=== PATIENT | female | born 1980 | race Caucasian/White ===

== ENCOUNTER 2017-01-18 09:17 | Emergency (ER) | payer SELFPAY ==
[~2017-01-18] VITALS: Ht 167.6 cm; Wt 100.2 kg
[2017-01-18] MEDS ORDERED: GABA300C PO (09:54)
[2017-01-18] MEDS ORDERED: DULO60CA6 PO (09:54)
[2017-01-18] MEDS ORDERED: L.AC1CAP6 PO (09:54)
[2017-01-18 11:00] VITALS: BP 0/0
== END 2017-01-18 10:57 | disposition left against medical advice (07) ==
LOC: ER 09:21
DX: R19.7 Diarrhea, unspecified (principal); Z53.21 Procedure and treatment not carried out due to patient leaving prior to being seen by health care provider
CPT/HCPCS: 99282

== ENCOUNTER 2017-06-04 19:49 | Emergency (ER) | payer SELFPAY ==
[~2017-06-04] VITALS: Ht 167.6 cm; Wt 124.7 kg
[~2017-06-04 19:49] MED LIST: DULO60CA6 PO; GABA300C PO; L.AC1CAP6 PO
[2017-06-04] MEDS ORDERED: DULO30CA48 (20:39)
[2017-06-04] MEDS ORDERED: QUET50TA55 (20:39)
[2017-06-04] MEDS ORDERED: RT-ALBUINH (20:39)
[2017-06-04 21:03] LABS: BILIRUBIN,URINE NEGATIVE (NEGATIVE); KETONES,URINE NEGATIVE (NEGATIVE); LEUKOCYTE ESTERASE ,URINE 1+ (NEGATIVE); NITRITE,URINE NEGATIVE (NEGATIVE); PH,URINE 5 (5-9); PROTEIN,URINE NEGATIVE (NEGATIVE); UROBILINOGEN,URINE NORMAL (NORMAL)
[2017-06-04] MEDS ORDERED: KETOROLAC 30 MG/ML VIAL IVP STA (21:03)
[2017-06-04 21:12] LABS: WBC,URINE 0-2 /HPF
[2017-06-04 21:20] LABS: BASOPHILS # (AUTO) 0.1 10^3/uL (0.0-0.1); BASOPHILS % (AUTO) 1 % (0-10); EOSINOPHILS # (AUTO) 0.4 10^3/uL (0.0-0.3); EOSINOPHILS % (AUTO) 6 % (0-10); LYMPHOCYTES # (AUTO) 2.9 X 10^3 (1.0-4.0); LYMPHOCYTES % (AUTO) 49 % (12-44); MEAN CORPUSCULAR HEMOGLOBIN 28 PG (25-34); MEAN CORPUSCULAR HGB CONC 33 G/DL (32-36); MEAN CORPUSCULAR VOLUME 84 FL (80-99); MONOCYTES # (AUTO) 0.7 X 10^3 (0.0-1.0); MONOCYTES % (AUTO) 13 % (0-12); NEUTROPHILS # (AUTO) 1.8 X 10^3 (1.8-7.8); NEUTROPHILS % (AUTO) 31 % (42-75); PLATELET COUNT 269 10^3/uL (130-400); RED CELL DISTRIBUTION WIDTH 14.9 % (10.0-14.5); WHITE BLOOD COUNT 5.9 10^3/uL (4.3-11.0)
--- NOTE | 2017-06-04 21:29 | ED General ---
General Chief Complaint: General Problems/Pain Stated Complaint: BODY ACHES, LOSING FEELING IN HANDS, FATIGUE Nursing Triage Note: AMB TO ED 9 WITH NUMEROUS HYSTERONICS OF SLOW MOVEMENTS AND MOANING, HUNCHED OVER C/O 4 DAYS OF EVERY JOINT IN BODY HURTING. PT WAS JUST FOUND IN WAITING ROOM AFTER HAVING WENT TO HER CAR EARLIER WHEN NAME CALLED AND NOTED WALKING INTO ER WITHOUT DIFF. Nursing Sepsis Screen: No Definite Risk Source of Information: Patient Exam Limitations: No Limitations History of Present Illness Time Seen by Provider: 20:38 Initial Comments Here with report of body aches for the last 4 days. States this is all been worsening since starting Seroquel about a month ago. The last 24 hours she has noted increasing hand swelling and pain in her hands as well as what she describes as patient may be some weakness. She states that she dropped a cup in the middle the night and again this morning. She is not sure what is going on but. She needed to get checked out. She does follow with [facility]. 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 She has been intermittently taking her gabapentin. Also started Prozac within the last month as well. Timing/Duration: 3-4 Days Severity: Moderate Associated Systoms: No Chest Pain, No Fever/Chills, No Nausea/Vomiting, No Shortness of Air, Weakness Allergies and Home Medications Allergies Coded Allergies: No Known Drug Allergies (Unverified , 06/04/17) Home Medications Albuterol Sulfate 6.7 Gm Hfa.aer.ad, (Reported) Duloxetine HCl 60 Mg Capsule., Unknown Dose PO DAILY, (Reported) Duloxetine HCl 30 Mg Capsule., (Reported) Gabapentin 300 Mg Capsule, Unknown Dose PO DAILY, (Reported) L.acidoph & Paracasei,B.lactis 1 Each Capsule, 1 EACH PO NEEDED, (Reported) Quetiapine Fumarate 50 Mg Tablet, (Reported) Constitutional: see HPI, No chills, No fever EENTM: no symptoms reported Respiratory: no symptoms reported Cardiovascular: no symptoms reported Gastrointestinal: No abdominal pain, No nausea, No vomiting Genitourinary: no symptoms reported Musculoskeletal: see HPI, joint pain, muscle pain Skin: no symptoms reported Psychiatric/Neurological: See HPI, Tingling, Weakness Hematologic/Lymphatic: No Symptoms Reported All Other Systems Reviewed Negative Unless Noted: Yes Past Mxqubcl-Pfaszj-Pabdwb Hx Patient Social History Alcohol Use: Past History Recreational Drug Use: Yes (Recovering (5 mo clean) IV meth and ETOH addiction) Smoking Status: Current Everyday Smoker Type Used: Cigarettes 2nd Hand Smoke Exposure: Yes Recent Foreign Travel: No Contact w/Someone Who Travel: No Recent Infectious Disease Expo: No Recent Hopitalizations: No Seasonal Allergies Seasonal Allergies: No Surgeries History of Surgeries: Yes Surgeries: Gallbladder Respiratory History of Respiratory Disorde: Yes Respiratory Disorders: Asthma Cardiovascular History of Cardiac Disorders: No Neurological History of Neurological Disord: No Reproductive System : No (NO MENSES FOR 2 MO) Genitourinary History of Genitourinary Disor: No Gastrointestinal History of Gastrointestinal Di: No Musculoskeletal History of Musculoskeletal Dis: No Endocrine History of Endocrine Disorders: No HEENT History of HEENT Disorders: No Cancer History of Cancer: No Psychosocial History of Psychiatric Problem: Yes (Pyschotic features with each mental health dx given; PMDD) Behavioral Health Disorders: PTSD, Depression Integumentary History of Skin or Integumenta: No Reviewed Nursing Assessment Reviewed/Agree w Nursing PMH: Yes Family Medical History Significant Family History: No Pertinent Family Hx Physical Exam Vital Signs Vital Sign - Last 12Hours 06/04/17 20:29 Temp 97.4 Pulse 98 Resp 22 B/P (MAP) 132/85 Pulse Ox 94 O2 Delivery Room Air Capillary Refill : Less Than 3 Seconds General Appearance: No Apparent Distress, WD/WN HEENT: PERRL/EOMI, Pharynx Normal Neck: Non Tender, Supple Respiratory: Lungs Clear, Normal Breath Sounds Cardiovascular: Regular Rate, Rhythm, No Murmur Gastrointestinal: Non Tender, Soft Back: Normal Inspection, No CVA Tenderness, No Vertebral Tenderness Extremity: Normal Range of Motion, Non Tender Neurologic/Psychiatric: Alert, Oriented x3 Skin: Normal Color, Warm/Dry Progress/Results/Core Measures Results/Orders Lab Results Laboratory Tests Test 06/04/17 20:45 06/04/17 21:14 Range/Units Urine Color YELLOW Urine Clarity CLEAR Urine pH 5 5-9 Urine Specific [place] 1.025 H 1.016-1.022 Urine Protein NEGATIVE NEGATIVE Urine Glucose (UA) NEGATIVE NEGATIVE Urine Ketones NEGATIVE NEGATIVE Urine Nitrite NEGATIVE NEGATIVE Urine Bilirubin NEGATIVE NEGATIVE Urine Urobilinogen NORMAL NORMAL MG/DL Urine Leukocyte Esterase 1+ H NEGATIVE Urine RBC (Auto) 1+ H NEGATIVE Urine RBC RARE /HPF Urine WBC 0-2 /HPF Urine Squamous Epithelial Cells 2-5 /HPF Urine Crystals NONE /LPF Urine Bacteria TRACE /HPF Urine Casts NONE /LPF Urine Mucus SMALL H /LPF Urine Culture Indicated NO Urine Opiates Screen NEGATIVE NEGATIVE Urine Oxycodone Screen NEGATIVE NEGATIVE Urine Methadone Screen NEGATIVE NEGATIVE Urine Propoxyphene Screen NEGATIVE NEGATIVE Urine Barbiturates Screen NEGATIVE NEGATIVE Ur Tricyclic Antidepressants Screen POSITIVE H NEGATIVE Urine Phencyclidine Screen NEGATIVE NEGATIVE Urine Amphetamines Screen NEGATIVE NEGATIVE Urine Methamphetamines Screen POSITIVE H NEGATIVE Urine Benzodiazepines Screen POSITIVE H NEGATIVE Urine Cocaine Screen NEGATIVE NEGATIVE Urine Cannabinoids Screen NEGATIVE NEGATIVE White Blood Count 5.9 4.3-11.0 10^3/uL Red Blood Count 4.30 L 4.35-5.85 10^6/uL Hemoglobin 12.0 11.5-16.0 G/DL Hematocrit 36 35-52 % Mean Corpuscular Volume 84 80-99 FL Mean Corpuscular Hemoglobin 28 25-34 PG Mean Corpuscular Hemoglobin Concent 33 32-36 G/DL Red Cell Distribution Width 14.9 H 10.0-14.5 % Platelet Count 269 130-400 10^3/uL Mean Platelet Volume 10.0 7.4-10.4 FL Neutrophils (%) (Auto) 31 L 42-75 % Lymphocytes (%) (Auto) 49 H 12-44 % Monocytes (%) (Auto) 13 H 0-12 % Eosinophils (%) (Auto) 6 0-10 % Basophils (%) (Auto) 1 0-10 % Neutrophils # (Auto) 1.8 1.8-7.8 X 10^3 Lymphocytes # (Auto) 2.9 1.0-4.0 X 10^3 Monocytes # (Auto) 0.7 0.0-1.0 X 10^3 Eosinophils # (Auto) 0.4 H 0.0-0.3 10^3/uL Basophils # (Auto) 0.1 0.0-0.1 10^3/uL Erythrocyte Sedimentation Rate 16 0-20 MM/HR Sodium Level 139 135-145 MMOL/L Potassium Level 4.0 3.6-5.0 MMOL/L Chloride Level 104 98-107 MMOL/L Carbon Dioxide Level 28 21-32 MMOL/L Anion Gap 7 5-14 MMOL/L Blood Urea Nitrogen 11 7-18 MG/DL Creatinine 0.79 0.60-1.30 MG/DL Estimat Glomerular Filtration Rate > 60 BUN/Creatinine Ratio 14 Glucose Level 102 70-105 MG/DL Calcium Level 8.9 8.5-10.1 MG/DL Magnesium Level 1.7 L 1.8-2.4 MG/DL Total Bilirubin 0.2 0.1-1.0 MG/DL Aspartate Amino Transf (AST/SGOT) 28 5-34 U/L Alanine Aminotransferase (ALT/SGPT) 27 0-55 U/L Alkaline Phosphatase 70 40-136 U/L Total Creatine Kinase 129 29-168 U/L C-Reactive Protein High Sensitivity 0.11 0.00-0.50 MG/DL Total Protein 7.1 6.4-8.2 GM/DL Albumin 3.7 3.2-4.5 GM/DL Thyroid Stimulating Hormone (TSH) 1.61 0.35-4.94 UIU/ML My Orders Orders - YUN TIRADO MD Cbc With Automated Diff (06/04/17 20:42) Comprehensive Metabolic Panel (06/04/17 20:42) Hs C Reactive Protein (06/04/17 20:42) Drug Screen Stat (Urine) (06/04/17 20:42) Magnesium (06/04/17 20:42) Thyroid Stimulating Hormone (06/04/17 20:42) Ua Culture If Indicated (06/04/17 20:42) Saline Lock/Iv-Start (06/04/17 20:42) Ketorolac Injection (Toradol Injection) (06/04/17 21:03) Creatine Kinase (06/04/17 21:03) Erythrocyte Sedimentation Rate (06/04/17 21:03) Ns Iv 1000 Ml (Sodium Chloride 0.9%) (06/04/17 21:43) Vital Signs/I&O Vital Sign - Last 12Hours 06/04/17 20:29 Temp 97.4 Pulse 98 Resp 22 B/P (MAP) 132/85 Pulse Ox 94 O2 Delivery Room Air Blood Pressure Mean: 101 Point of Care Testing Urine -Bedside: Negative Progress Note : Progress Note Seen and evaluated. IV, labs and UA ordered. Monitor patient. 2135: Normal saline 1 L bolus. Monitor patient. Drug screen is positive for methamphetamine but this is often the case with the patient is on Seroquel. Amphetamines are negative. Unsure why benzodiazepines are positive. I did ask her about this and she states that her mother gave her one of her Xanax was last night because she wasn't feeling well. She adamantly denies methamphetamine and at this point I believe her. Monitor patient. 2245: Results reviewed. Patient does state that she did increase her Seroquel to 50 mg every afternoon and her symptoms worsen. I do believe this is related to her Seroquel. She needs to talk with the clinic about adjustments. She will call in the morning. Copy of chart to clinic. Discharged home with return precautions. Patient verbalize understanding instructions and agreement with plan. Departure Impression Impression: Primary Impression: Medication adverse effect Qualified Codes: T88.7XXA - Unspecified adverse effect of drug or medicament, initial encounter Additional Impressions: Dysarthria Joint pain Qualified Codes: M25.50 - Pain in unspecified joint Disposition: 01 HOME, SELF-CARE Condition: Stable Departure-Patient Inst. Decision time for Depature: 22:49 Referrals: [facility] (PCP/Family) Primary Care Physician Patient Instructions: Adverse Drug Reactions, Adult (DC), Joint Pain Add. Discharge Instructions: All discharge instructions reviewed with patient and/or family. Voiced understanding. Call your Dr. in the morning for recheck and further evaluation. You should decrease the Seroquel to 25 mg at a minimum. Your physician may have used office altogether since she had only been on a short-term. It is important that he follow-up in the clinic within the next one to 2 days for recheck and further evaluation. Return for worse pain, fever, vomiting, weakness, breathing problems or other concerns as needed. Copy Copies To 1: STARR MUNSON TIMOTHY D MD Jun 04, 2017 21:29
[2017-06-04 21:38] LABS: ERYTHROCYTE SEDIMENTATION RATE 16 MM/HR (0-20)
[2017-06-04 21:39] LABS: ALANINE AMINOTRANSFERASE 27 U/L (0-55); ALBUMIN 3.7 GM/DL (3.2-4.5); ANION GAP 7 MMOL/L (5-14); ASPARTATE AMINO TRANSFERASE 28 U/L (5-34); BILIRUBIN,TOTAL 0.2 MG/DL (0.1-1.0); BLOOD UREA NITROGEN 11 MG/DL (7-18); BUN/CREATININE RATIO 14; CALCIUM 8.9 MG/DL (8.5-10.1); CARBON DIOXIDE 28 MMOL/L (21-32); CHLORIDE 104 MMOL/L (98-107); CREATINE KINASE 129 U/L (29-168); CREATININE SERUM 0.79 MG/DL (0.60-1.30); GFR ESTIMATED > 60; GLUCOSE 102 MG/DL (70-105); MAGNESIUM 1.7 MG/DL (1.8-2.4); SODIUM 139 MMOL/L (135-145); TOTAL PROTEIN 7.1 GM/DL (6.4-8.2); hs C REACTIVE PROTEIN 0.11 MG/DL (0.00-0.50)
[2017-06-04] MEDS ORDERED: NS IV 1000 ML 1,000 ML IV ONE (21:43)
[2017-06-04 21:58] LABS: THYROID STIMULATING HORMONE 1.61 UIU/ML (0.35-4.94)
[2017-06-04 23:00] VITALS: BP 128/64
== END 2017-06-04 23:00 | disposition home or self-care (01) ==
LOC: EDUNIT# 19:49 → ER 19:50
DX: R47.1 Dysarthria and anarthria (principal); M25.50 Pain in unspecified joint; T88.7XXA Unspecified adverse effect of drug or medicament, initial encounter; J45.909 Unspecified asthma, uncomplicated; F43.10 Post-traumatic stress disorder, unspecified; F32.9 Major depressive disorder, single episode, unspecified; F17.210 Nicotine dependence, cigarettes, uncomplicated
CPT/HCPCS: 36415; 80053; 80306; 81000; 82550; 83735; 84443; 84703; 85025; 85652; 86141

== ENCOUNTER 2018-02-04 14:41 | Emergency (ER) | payer SELFPAY ==
[~2018-02-04] VITALS: Ht 167.6 cm; Wt 122.6 kg
[~2018-02-04 14:41] MED LIST changes: +CEFD300C3 PO; +DULO30CA48 PO; +FLUO40CA PO; +LEVO750T9 PO; +PRAZ1CAP PO; +QUET50TA55 PO; +RT-ALBUINH; +RT-ALBUINH INH
[2018-02-04] MEDS ORDERED: RT-ALBUTEROL/IPRATROPIUM 3 ML (DUONEB) VIAL INH ONE (15:00)
[2018-02-04] MEDS ORDERED: FLUO40CA (15:12)
[2018-02-04] MEDS ORDERED: BUPR1FIL3 (15:12)
--- NOTE | 2018-02-04 15:30 | ED Respiratory ---
General Chief Complaint: Respiratory Problems Stated Complaint: SOB Nursing Triage Note: SOA REPORTED TODAY AFTER GETTING TIGHTNESS IN CHEST YESTERDAY. PT CALLED INTO WORK YESTERDAY FOR COUGH WITH [employer] OF [employer]. Source: patient Exam Limitations: no limitations History of Present Illness Date Seen by Provider: Feb 04, 2018 Time Seen by Provider: 14:40 Initial Comments Here with reports of shortness of air today and using her inhaler multiple times. Has had cough for a few days with question of fever. Reports productive cough. Does have history of asthma. Denies nausea, vomiting, diarrhea. Has had asthma since she was 3 and this feels like an exacerbation. Timing/Duration: getting worse, other (2 days) Severity: moderate Prior Episodes/Possible Cause: occasional episodes Modifying Factors: Worse With Activity; Improves With Albuterol Inhaler Associated Symptoms: cough, fever/chills, nasal congestion, nasal drainage, shortness of breath, wheezing Allergies and Home Medications Allergies Coded Allergies: No Known Drug Allergies (Unverified , 06/04/17) Patient Home Medication List Home Medication List Reviewed: Yes Review of Systems Constitutional: see HPI, chills, fever EENTM: see HPI Respiratory: cough, short of breath, wheezing Cardiovascular: no symptoms reported Gastrointestinal: no symptoms reported Musculoskeletal: no symptoms reported Skin: no symptoms reported All Other Systems Reviewed Negative Unless Noted: Yes Past Umxyefn-Uubgbd-Islyfw Hx Past Med/Social Hx: Reviewed Nursing Past Med/Soc Hx Patient Social History Alcohol Use: Denies Use Recreational Drug Use: Yes (REPORTS "POT" A COUPLE DAYS AGO) Drug of Choice: METHAMPHETAMINE Smoking Status: Current Everyday Smoker Type Used: Cigarettes 2nd Hand Smoke Exposure: Yes Recent Foreign Travel: No Contact w/Someone Who Travel: No Recent Infectious Disease Expo: No Recent Hopitalizations: No Immunizations Up To Date Tetanus Booster (TDap): Unknown Seasonal Allergies Seasonal Allergies: No Past Medical History Surgeries: Yes Gallbladder, Tubal Ligation Respiratory: Yes Asthma Cardiac: No Neurological: No : No Last Menstrual Period: Feb 02, 2018 [employer] History: Tubal Ligation Genitourinary: No Gastrointestinal: No Musculoskeletal: No Endocrine: No HEENT: No Cancer: No Psychosocial: Yes PTSD, Depression Integumentary: No Family Medical History Reviewed Nursing Family Hx Patient reports no known family medical history. No Pertinent Family Hx Physical Exam Vital Signs Vital Signs - First Documented 02/04/18 02/04/18 14:42 15:52 Temp 97.4 Pulse 138 Resp 24 B/P (MAP) 144/96 (112) Pulse Ox 96 O2 Delivery Room Air O2 Flow Rate 2.00 Capillary Refill : Less Than 3 Seconds General Appearance: WD/WN, no apparent distress HEENT: PERRL/EOMI, pharyngeal erythema, other (moderate bilateral nasal congestion with erythema) Neck: full range of motion, supple, normal inspection Respiratory: decreased breath sounds, accessory muscle use, wheezing Cardiovascular: no murmur, tachycardia Gastrointestinal: non tender, soft Extremities: non-tender, normal inspection Neurologic/Psychiatric: alert, oriented x 3 Skin: normal color, warm/dry Procedures/Interventions Date of ETT Placement: Jun 26, 2017 Time of ETT Placement: 1748 Progress/Results/Core Measures Suspected Sepsis Recent Fever Within 48 Hours: No Infection Criteria Present: Suspected New Infection New/Unexplained Altered Menta: No Sepsis Screen: Possible Sepsis Risk SIRS Temperature:97.4 Pulse: 138 Respiratory Rate: 24 Blood Pressure 144 /96 Mean: 112 Results/Orders My Orders Orders - YUN TIRADO MD Albuterol/Ipra Inhalation Soln (Duoneb I (02/04/18 15:00) Svn Small Volume Nebulizer (02/04/18 14:46) Rt Request For Service (02/04/18 14:46) Prednisone Tablet (Deltasone Tablet) (02/04/18 15:45) Albuterol Pre-Mix Nebs (Rt) (Proventil (02/04/18 16:29) Svn Small Volume Nebulizer (02/04/18 16:29) Rx-Albuterol Inhaler (Rx-Proair) (02/04/18 16:30) Medications Given in ED Current Medications Medications Dose Ordered Sig/Margarita Route Start Time Stop Time Status Last Admin Dose Admin Albuterol/ Ipratropium 3 ml ONCE ONCE INH 02/04/18 15:00 02/04/18 15:01 DC 02/04/18 15:06 3 ML Prednisone 60 mg ONCE ONCE PO 02/04/18 15:45 02/04/18 15:46 DC 02/04/18 15:58 60 MG Vital Signs/I&O 02/04/18 02/04/18 02/04/18 14:42 15:52 16:42 Temp 97.4 99.6 Pulse 138 105 Resp 24 24 B/P (MAP) 144/96 (112) 115/64 (81) Pulse Ox 96 96 98 O2 Delivery Room Air Nasal Cannula Nasal Cannula O2 Flow Rate 2.00 2.00 Capillary Refill : Less Than 3 Seconds Blood Pressure Mean: 112 Progress Note : Progress Note Seen and evaluated. Patient arrives shaky from using albuterol at home but is very wheezy. DuoNeb ordered. We will give prednisone 60 mg by mouth. Due to cough and congestion and sputum production, we will get chest x-ray. Monitor patient. 1650: Repeat albuterol neb 1. This did improve her symptoms. She is feeling a little better. Albuterol MDI given. Discharged home with return precautions. Patient verbalize understanding instructions and agreement with plan. I did spend time with her discussing cessation of smoking. She states that she is thinking about that. Diagnostic Imaging Diagonstic Imaging: Xray Plain Films/CT/US/NM/MRI: chest Comments VIA [facility]. [place], [place] NAME: DAKSHA SHARP [facility] REC#: [id number] PT STATUS: REG ER : 1980 PHYSICIAN: DARBY MOSS ADMIT DATE: 02/04/18/ER Draft Date of Exam:02/04/18 CHEST PA/LAT (2 VIEW) INDICATION: Shortness of breath. EXAMINATION: PA and lateral chest at 4:05 p.m. FINDINGS: The heart size is within normal limits and stable when compared to 07/01/2017. The central pulmonary vascularity does not appear nearly as prominent as noted on the prior exam. At this time there is no evidence for failure, pneumonia or for a pleural effusion. The mediastinum is not widened. The osseous structures are intact. IMPRESSION: There is no evidence for an acute cardiopulmonary abnormality. Dictated on workstation # [id number] Dict: 02/04/18 1557 Trans: 02/04/18 1605 [facility] [id number] Interpreted by: BETH LOPEZ MD Electronically signed by: Departure Impression Primary Impression: Asthma attack Qualified Codes: J45.21 - Mild intermittent asthma with (acute) exacerbation Disposition: HOME, SELF-CARE Condition: Improved Departure-Patient Inst. Decision time for Depature: 16:56 Referrals: [facility] (PCP/Family) Primary Care Physician Patient Instructions: Asthma, Adult (DC) Add. Discharge Instructions: All discharge instructions reviewed with patient and/or family. Voiced understanding. Take medications as directed. Follow-up with your Dr. or the walk-in clinic at [facility] tomorrow for recheck and further evaluation. Return for worsening, fever, vomiting, weakness, breathing problems or other concerns as needed. You may use your albuterol inhaler 2 puffs every 4 hours as needed for wheezing. Scripts Prednisone (Prednisone) 20 Mg Tab 40 MG PO DAILY, #10 TAB 0 Refills Prov: YUN TIRADO MD 02/04/18 Copy Copies To 1: JACINTA LAL TIMOTHY D MD Feb 04, 2018 15:30
[2018-02-04] MEDS ORDERED: predniSONE 20 MG TAB PO ONE (15:45)
[2018-02-04 15:52] VITALS: BP 115/64
--- NOTE | 2018-02-04 16:05 | Diagnostic Imaging Report ---
INDICATION: Shortness of breath. EXAMINATION: PA and lateral chest at 4:05 p.m. FINDINGS: The heart size is within normal limits and stable when compared to 07/01/2017. The central pulmonary vascularity does not appear nearly as prominent as noted on the prior exam. At this time there is no evidence for failure, pneumonia or for a pleural effusion. The mediastinum is not widened. The osseous structures are intact. IMPRESSION: There is no evidence for an acute cardiopulmonary abnormality. Dictated by: Dictated on workstation # [id number]
[2018-02-04] MEDS ORDERED: RT-ALBUTEROL SULF 2.5 MG/3 ML PRE-MIX VIAL INH STA (16:29)
[2018-02-04] MEDS ORDERED: RX-ALBUTEROL INHALER (PROAIR) 8 GM IH PRN (16:30)
[2018-02-04] MEDS ORDERED: PRD20T PO (16:57)
[2018-02-04 17:02] VITALS: BP 141/94
== END 2018-02-04 17:02 | disposition home or self-care (01) ==
LOC: EDUNIT# 14:41 → ER 14:42
DX: J45.901 Unspecified asthma with (acute) exacerbation (principal); F32.9 Major depressive disorder, single episode, unspecified; F43.10 Post-traumatic stress disorder, unspecified; F15.90 Other stimulant use, unspecified, uncomplicated; F17.210 Nicotine dependence, cigarettes, uncomplicated; Z98.51 Tubal ligation status
CPT/HCPCS: 71046; 94640

== ENCOUNTER 2018-10-31 12:04 | Inpatient (IN) | payer SELFPAY ==
[~2018-10-31] VITALS: Ht 167.6 cm; Wt 118.6 kg
[~2018-10-31 12:04] MED LIST changes: +BUPR1FIL3; +FLUO40CA; +PRD20T PO
[2018-10-31] MEDS ORDERED: RT-ALBUTEROL SULF 2.5 MG/3 ML PRE-MIX VIAL INH STA ×2 (12:12→12:40)
[2018-10-31 12:21] LABS: BASOPHILS % (AUTO) 0 % (0-10); EOSINOPHILS # (AUTO) 0.1 10^3/uL (0.0-0.3); EOSINOPHILS % (AUTO) 1 % (0-10); HEMATOCRIT 40 % (35-52); HEMOGLOBIN 13.1 G/DL (11.5-16.0); LYMPHOCYTES # (AUTO) 2.8 X 10^3 (1.0-4.0); LYMPHOCYTES % (AUTO) 29 % (12-44); MEAN CORPUSCULAR HEMOGLOBIN 28 PG (25-34); MEAN CORPUSCULAR HGB CONC 33 G/DL (32-36); MEAN CORPUSCULAR VOLUME 84 FL (80-99); MEAN PLATELET VOLUME 10.1 FL (7.4-10.4); MONOCYTES # (AUTO) 0.8 X 10^3 (0.0-1.0); MONOCYTES % (AUTO) 8 % (0-12); NEUTROPHILS % (AUTO) 62 % (42-75); PLATELET COUNT 335 10^3/uL (130-400); WHITE BLOOD COUNT 9.7 10^3/uL (4.3-11.0)
--- NOTE | 2018-10-31 12:33 | NUR ---
SEE LIST FOR CURRENT MEDS LIST
[2018-10-31] MEDS ORDERED: RT-IPRATROPIUM (ATROVENT) 0.5MG/2.5ML AMP IH ONE ×2 (12:40→12:45)
[2018-10-31 12:45] LABS: ALANINE AMINOTRANSFERASE 46 U/L (0-55); ALBUMIN 4.2 GM/DL (3.2-4.5); ALKALINE PHOSPHATASE 83 U/L (40-136); BILIRUBIN,TOTAL 0.3 MG/DL (0.1-1.0); BUN/CREATININE RATIO 16; CALCIUM 9.4 MG/DL (8.5-10.1); CARBON DIOXIDE 23 MMOL/L (21-32); CHLORIDE 102 MMOL/L (98-107); CREATININE SERUM 0.93 MG/DL (0.60-1.30); GFR ESTIMATED > 60; GLUCOSE 89 MG/DL (70-105); SODIUM 134 MMOL/L (135-145); TOTAL PROTEIN 7.5 GM/DL (6.4-8.2)
--- NOTE | 2018-10-31 13:16 | ED Respiratory ---
General Chief Complaint: Respiratory Problems Stated Complaint: SOA Nursing Triage Note: PT ARRIVED PER EMS PT IS HAVING AN ASTHMA ATTACK, PT ARRIVED FROM [facility], PT HAS AUDITORY WHEEZING, RATES 93%ON ROOM AIR, PT DENIES FEVER, 8MG DECADRON GIVEN IM AT CLINIC. 1 DUONEB BY [facility] AND 1 ALBULTEROL TX BY EMS. Source: patient Exam Limitations: no limitations History of Present Illness Date Seen by Provider: Oct 31, 2018 Time Seen by Provider: 12:14 Initial Comments Here with report of asthma attack. She went to the clinic and they did give her a DuoNeb there as well as 8 mg of Decadron IM. O2 saturations was reported to be low and in the 80s. She was placed on oxygen at the clinic. This did help. EMS was called and they did give albuterol neb in route helped a little bit. Patient denies current fever or vomiting. Does have lifelong asthma. She has had breathing problems over the last week and has used up all of her inhaler and is not getting better. This all started with a cold last week. She did have chest x-ray today at the clinic which is reportedly read as just atelectasis.. The CD was sent with the patient. Timing/Duration: week, getting worse Severity: moderate Prior Episodes/Possible Cause: occasional episodes Modifying Factors: Improves With Albuterol Nebulizer, Improves With Oxygen, Improves With Rest Associated Symptoms: No chest pain/soreness; cough; No dizziness, No fever/ chills; shortness of breath, wheezing Allergies and Home Medications Allergies Coded Allergies: No Known Drug Allergies (Unverified , 06/04/17) Home Medications Prednisone 20 Mg Tab, 40 MG PO DAILY Prescribed by: YUN TIRADO on 02/04/18 1765 Patient Home Medication List Home Medication List Reviewed: Yes Review of Systems Review of Systems Constitutional: see HPI; No chills, No fever EENTM: no symptoms reported Respiratory: cough, dyspnea on exertion, short of breath, wheezing Cardiovascular: no symptoms reported Gastrointestinal: no symptoms reported All Other Systems Reviewed Negative Unless Noted: Yes Past Aclnijo-Ljprst-Omteua Hx Past Med/Social Hx: Reviewed Nursing Past Med/Soc Hx Patient Social History Alcohol Use: Denies Use Recreational Drug Use: No Drug of Choice: METHAMPHETAMINE Smoking Status: Current Everyday Smoker Type Used: Cigarettes 2nd Hand Smoke Exposure: Yes Recent Foreign Travel: No Contact w/Someone Who Travel: No Recent Infectious Disease Expo: No Recent Hopitalizations: No Immunizations Up To Date Tetanus Booster (TDap): Unknown Seasonal Allergies Seasonal Allergies: No Past Medical History Surgeries: Yes Gallbladder, Tubal Ligation Respiratory: Yes Asthma Cardiac: No Neurological: No INCOME TAX CONSULTANT History: Tubal Ligation Genitourinary: No Gastrointestinal: No Musculoskeletal: No Endocrine: No HEENT: No Cancer: No Psychosocial: Yes PTSD, Depression Integumentary: No Family Medical History Reviewed Nursing Family Hx Patient reports no known family medical history. No Pertinent Family Hx Physical Exam Vital Signs - First Documented 10/31/18 12:10 Temp 97.3 Pulse 94 Resp 18 B/P (MAP) 149/85 (106) Pulse Ox 93 O2 Delivery Room Air Capillary Refill : Less Than 3 Seconds Height: 5'6.00" Weight: 260lbs. 6.0oz. 117.444755vv; 41.6 BMI Method:Stated General Appearance: WD/WN, mild distress HEENT: PERRL/EOMI, pharynx normal Neck: full range of motion, supple Respiratory: respiratory distress, accessory muscle use, wheezing, expiration Cardiovascular: regular rate, rhythm, no murmur Gastrointestinal: non tender, soft Extremities: non-tender, normal inspection Neurologic/Psychiatric: alert, oriented x 3 Skin: normal color, warm/dry Procedures/Interventions Date of ETT Placement: Jun 26, 2017 Time of ETT Placement: 1749 Progress/Results/Core Measures Suspected Sepsis Recent Fever Within 48 Hours: No Infection Criteria Present: None New/Unexplained Altered Menta: No Sepsis Screen: No Definite Risk SIRS Temperature:97.3 Pulse: 94 Respiratory Rate: 18 Laboratory Tests 10/31/18 12:15: White Blood Count 9.7 Blood Pressure 149 /85 Mean: 106 Laboratory Tests 10/31/18 12:15: Creatinine 0.93, Platelet Count 335, Total Bilirubin 0.3 Results/Orders Lab Results Laboratory Tests Test 10/31/18 12:15 Range/Units White Blood Count 9.7 4.3-11.0 10^3/uL Red Blood Count 4.71 4.35-5.85 10^6/uL Hemoglobin 13.1 11.5-16.0 G/DL Hematocrit 40 35-52 % Mean Corpuscular Volume 84 80-99 FL Mean Corpuscular Hemoglobin 28 25-34 PG Mean Corpuscular Hemoglobin Concent 33 32-36 G/DL Red Cell Distribution Width 15.0 H 10.0-14.5 % Platelet Count 335 130-400 10^3/uL Mean Platelet Volume 10.1 7.4-10.4 FL Neutrophils (%) (Auto) 62 42-75 % Lymphocytes (%) (Auto) 29 12-44 % Monocytes (%) (Auto) 8 0-12 % Eosinophils (%) (Auto) 1 0-10 % Basophils (%) (Auto) 0 0-10 % Neutrophils # (Auto) 6.0 1.8-7.8 X 10^3 Lymphocytes # (Auto) 2.8 1.0-4.0 X 10^3 Monocytes # (Auto) 0.8 0.0-1.0 X 10^3 Eosinophils # (Auto) 0.1 0.0-0.3 10^3/uL Basophils # (Auto) 0.0 0.0-0.1 10^3/uL Sodium Level 134 L 135-145 MMOL/L Potassium Level 4.0 3.6-5.0 MMOL/L Chloride Level 102 98-107 MMOL/L Carbon Dioxide Level 23 21-32 MMOL/L Anion Gap 9 5-14 MMOL/L Blood Urea Nitrogen 15 7-18 MG/DL Creatinine 0.93 0.60-1.30 MG/DL Estimat Glomerular Filtration Rate > 60 BUN/Creatinine Ratio 16 Glucose Level 89 70-105 MG/DL Calcium Level 9.4 8.5-10.1 MG/DL Corrected Calcium 9.2 8.5-10.1 MG/DL Total Bilirubin 0.3 0.1-1.0 MG/DL Aspartate Amino Transf (AST/SGOT) 23 5-34 U/L Alanine Aminotransferase (ALT/SGPT) 46 0-55 U/L Alkaline Phosphatase 83 40-136 U/L C-Reactive Protein High Sensitivity 0.05 0.00-0.50 MG/DL Total Protein 7.5 6.4-8.2 GM/DL Albumin 4.2 3.2-4.5 GM/DL My Orders Orders - YUN TIRADO MD Cbc With Automated Diff (10/31/18 12:12) Comprehensive Metabolic Panel (10/31/18 12:12) Hs C Reactive Protein (10/31/18 12:12) O2 (10/31/18 12:12) Monitor-Rhythm Ecg Trace Only (10/31/18 12:12) Albuterol Pre-Mix Nebs (Rt) (Proventil (10/31/18 12:12) Svn Small Volume Nebulizer (10/31/18 12:12) Albuterol Pre-Mix Nebs (Rt) (Proventil (10/31/18 12:40) Ipratropium 0.02% Neb Solution (Atrovent (10/31/18 12:45) Svn Small Volume Nebulizer (10/31/18 12:40) Svn Small Volume Nebulizer (10/31/18 12:40) Ipratropium 0.02% Neb Solution (Atrovent (10/31/18 12:40) Medications Given in ED Current Medications Medications Dose Ordered Sig/Margarita Route Start Time Stop Time Status Last Admin Dose Admin Ipratropium [place] 0.5 mg ONCE ONCE IH 10/31/18 12:45 10/31/18 12:46 DC 10/31/18 12:44 0.5 MG Vital Signs/I&O 10/31/18 10/31/18 10/31/18 12:10 12:32 12:45 Temp 97.3 Pulse 94 Resp 18 B/P (MAP) 149/85 (106) Pulse Ox 93 95 93 O2 Delivery Room Air Room Air Room Air Capillary Refill : Less Than 3 Seconds Blood Pressure Mean: 106 Progress Note : Progress Note Seen and evaluated. Albuterol neb 2 ordered. This was complete and did not change her status much. She is still not at baseline. We have drawn labs and symptoms for evaluation. I did review the CT of the chest x-ray sent for the patient for today and what appears to be a previous visit. I do agree with the atelectasis concerns to the right base. Labs do not show any significant findings for elevated white count or elevated CRP so I do not believe she has pneumonia. This seems to be asthma exacerbation. Hour-long treatment initiated. 1344: I did discuss the case with Dr. Bradshaw and she accepts patient for admission for status asthma. We will continue the breathing treatments and then also start Solu-Medrol 60 mg IV every 6. 1435: Patient is on O2 at 2 L. She does have drop and O2 1 sleeping to 85% on room air earlier. Patient agrees with admission. Departure Impression Primary Impression: Status asthmaticus Qualified Codes: J45.42 - Moderate persistent asthma with status asthmaticus Disposition: ADMITTED INPATIENT Condition: Stable Admissions Decision to Admit Reason: Admit from ER (General) Decision to Admit/Date: Oct 31, 2018 Time/Decision to Admit Time: 13:44 Departure-Patient Inst. Referrals: [facility] (PCP/Family) Primary Care Physician YUN TIRADO MD Oct 31, 2018 13:16
--- NOTE | 2018-10-31 14:17 | NUR ---
O2 PUT ON PT, SAT AT 85% WHEN SLEEPING 2L N/C APPLIED
[2018-10-31 15:48] VITALS: BP 134/85
[2018-10-31 16:43] VITALS: BP 134/83
[2018-10-31 16:45] VITALS: BP 149/85
[2018-10-31] MEDS ORDERED: CATHETER FLUSH 10 ML SYR IV PRN (16:45)
[2018-10-31] MEDS: NS IV 1000 ML 1,000 ML IV SCH (16:53)
[2018-10-31] MEDS ORDERED: RT-ALBUTEROL/IPRATROPIUM 3 ML (DUONEB) VIAL INH PRN (17:00)
[2018-10-31] MEDS ORDERED: FLU QUADRIvalent (5+ YOA) 2018-2019 (AFLURIA) 0.5 ML IM ONE (17:00)
[2018-10-31] MEDS: IBUPROFEN 600 MG (MOTRIN) TAB PO PRN ×2 (17:31→23:17)
[2018-10-31] MEDS: methylPREDNISolone 40 MG/ML (Solu-MEDROL) VIAL IV SCH ×2 (17:38→23:16)
[2018-10-31] MEDS: RT-ALBUTEROL/IPRATROPIUM 3 ML (DUONEB) VIAL INH SCH ×2 (18:49→23:43)
[2018-10-31] MEDS: NICOTINE 21 MG (NICODERM) PATCH TD SCH (18:50)
[2018-10-31 19:45] VITALS: BP 132/65
[2018-11-01] VITALS: BP 140/60
[2018-11-01] MEDS: ONDANSETRON 4 MG/2 ML (SDV) Z0FRAN IV PRN ×3 (00:04→16:49)
[2018-11-01] MEDS: NS IV 1000 ML 1,000 ML IV SCH ×3 (02:12→19:20)
[2018-11-01] MEDS: RT-ALBUTEROL/IPRATROPIUM 3 ML (DUONEB) VIAL INH SCH ×5 (02:21→22:35)
[2018-11-01 04:47] VITALS: BP 129/74
[2018-11-01] MEDS: methylPREDNISolone 40 MG/ML (Solu-MEDROL) VIAL IV SCH ×3 (05:34→17:53)
[2018-11-01] MEDS: IBUPROFEN 600 MG (MOTRIN) TAB PO PRN ×2 (05:34→20:39)
[2018-11-01 07:00] LABS: BASOPHILS % (AUTO) 0 % (0-10); EOSINOPHILS % (AUTO) 0 % (0-10); HEMATOCRIT 39 % (35-52); HEMOGLOBIN 13.1 G/DL (11.5-16.0); LYMPHOCYTES # (AUTO) 1.6 X 10^3 (1.0-4.0); LYMPHOCYTES % (AUTO) 7 % (12-44); MEAN CORPUSCULAR HEMOGLOBIN 28 PG (25-34); MEAN CORPUSCULAR HGB CONC 34 G/DL (32-36); MEAN CORPUSCULAR VOLUME 84 FL (80-99); MEAN PLATELET VOLUME 10.3 FL (7.4-10.4); MONOCYTES # (AUTO) 0.8 X 10^3 (0.0-1.0); MONOCYTES % (AUTO) 3 % (0-12); NEUTROPHILS # (AUTO) 20.5 X 10^3 (1.8-7.8); NEUTROPHILS % (AUTO) 90 % (42-75); PLATELET COUNT 391 10^3/uL (130-400); RED CELL DISTRIBUTION WIDTH 15.2 % (10.0-14.5); WHITE BLOOD COUNT 22.9 10^3/uL (4.3-11.0)
[2018-11-01 07:27] LABS: ALANINE AMINOTRANSFERASE 39 U/L (0-55); ALBUMIN 4.2 GM/DL (3.2-4.5); ALKALINE PHOSPHATASE 90 U/L (40-136); BILIRUBIN,TOTAL 0.3 MG/DL (0.1-1.0); BUN/CREATININE RATIO 17; CARBON DIOXIDE 21 MMOL/L (21-32); CHLORIDE 104 MMOL/L (98-107); CREATININE SERUM 0.83 MG/DL (0.60-1.30); GFR ESTIMATED > 60; GLUCOSE 186 MG/DL (70-105); POTASSIUM 4.9 MMOL/L (3.6-5.0); SODIUM 135 MMOL/L (135-145); TOTAL PROTEIN 7.5 GM/DL (6.4-8.2)
[2018-11-01 07:45] LABS: BAND NEUTROPHILS 2 %; BASOPHILS % (MANUAL) 0 %; EOSINOPHILS % (MANUAL) 0 %; LYMPHOCYTES % (MANUAL) 8 %; MONOCYTES % (MANUAL) 4 %; NEUTROPHILS % (MANUAL) 86 %
[2018-11-01 07:46] LABS: ANISOCYTOSIS SLIGHT
[2018-11-01 08:00] VITALS: BP 111/72
[2018-11-01] MEDS ORDERED: BUPR1FIL3 SL (08:27)
[2018-11-01] MEDS: NICOTINE 21 MG (NICODERM) PATCH TD SCH (09:01)
[2018-11-01] MEDS ORDERED: ALBU6.7H8 INH (09:41)
[2018-11-01] MEDS ORDERED: FLUO20CA42 PO (09:41)
[2018-11-01] MEDS ORDERED: TRAZ-190 PO (09:41)
[2018-11-01] MEDS: BUPRENORPHINE HCL SL SCH (09:50)
[2018-11-01] MEDS: [UNRECOGNIZED DRUG - OTHER] SL SCH (09:50)
[2018-11-01] MEDS: NICOTINE PATCH REMOVAL TP SCH (09:50)
[2018-11-01] MEDS: NALOXONE HCL SL SCH (09:50)
[2018-11-01] MEDS ORDERED: BUPR1TAB48 SL (10:16)
--- NOTE | 2018-11-01 10:16 | NUR ---
CALLED [facility] FOR A LIST OF RECENTLY FILLED MEDICATIONS AND WENT OVER THAT LIST WITH THE PATIENT. [facility] FILLED: 11-01-18 SUBOXONE 8-2 SL TABLETS 2 DAILY PROVENTIL 2 PUFFS Q6H PRN TRAZODONE 100MG HS FLUOXETINE 20MG 3 DAILY(PATIENT STATES SHE JUST RESTARTED THIS SO IS ONLY TAKING 1 DAILY AND WILL TITRATE UP)
--- NOTE | 2018-11-01 11:21 | History & Physicial ([facility]) ---
KERRI BARAHONA MED STUDENT 11/01/18 1121: HPI History of Present Illness: The patient presented to [facility] ER for asthma exacerbation. She reports that she went to the walk in clinic 2 days ago and was given a nebulizer treatment as well as IV steroids. She went back to the clinic the next day and they found her O2 saturation to be in the 80s. They called the EMS and she was subsequently admitted for observation and treatment. This morning she states that she is feeling better but starting to feel very anxious. She states that she is on suboxone for opioid use disorder and believes she is starting to experience withdraw. She reports diarrhea of three times starting at 10pm yesterday. She also reports upper left abdominal pain which she attributes to prolonged difficulty in breathing. Source: patient Exam Limitations: no limitations Attending Physician Bess Bradshaw MD [place] [place] Consult Date of Admission Oct 31, 2018 at 14:38 Home Medications Home Medications Reviewed patient Home Medication Reconciliation performed by pharmacy medication reconciliations pile driving technician and/or nursing. Patients Allergies have been reviewed. Allergies Coded Allergies: No Known Drug Allergies (Unverified , 06/04/17) [id number] Hx Patient Social History Alcohol Use: Denies Use Recreational Drug Use: No Drug of Choice: METHAMPHETAMINE Smoking Status: Current Everyday Smoker Type Used: Cigarettes 2nd Hand Smoke Exposure: Yes Recent Foreign Travel: No Contact w/other who traveled: No Recent Hopitalizations: No Recent Infectious Disease Expo: No Immunizations Up To Date Tetanus Booster (TDap): Unknown Date of Influenza Vaccine: Oct 31, 2018 Family Medical History Significant Family History: No Pertinent Family Hx Family History: Patient reports no known family medical history. Review of Systems ([facility]) Respiratory: cough, dyspnea on exertion, short of breath Gastrointestinal: diarrhea Genitourinary: no symptoms reported Musculoskeletal: no symptoms reported Skin: no symptoms reported Reviewed Test Results Reviewed Test Results Lab Laboratory Tests 10/31/18 12:15 11/01/18 06:11 Vital Signs 10/31/18 11/01/18 16:45 08:00 Temp 98.6 Pulse 91 Resp 20 B/P (MAP) 111/72 (85) Pulse Ox 91 O2 Delivery Nasal Cannula O2 Flow Rate 2.00 FiO2 21 Physical Exam-([facility]) Physical Exam Vital Signs VS - Last 72 Hours, by Label 10/31/18 10/31/18 10/31/18 10/31/18 12:10 12:32 12:45 14:17 Temp 97.3 Pulse 94 Resp 18 B/P (MAP) 149/85 (106) Pulse Ox 93 95 93 94 O2 Delivery Room Air Room Air Room Air Nasal Cannula O2 Flow Rate 2.00 10/31/18 10/31/18 10/31/18 10/31/18 15:25 15:48 16:15 16:43 Temp 97.3 99.6 99.6 Pulse 94 95 106 Resp 18 18 18 B/P (MAP) 149/85 (106) 134/85 134/83 (100) Pulse Ox 93 89 89 O2 Delivery Room Air Room Air Room Air Room Air 10/31/18 10/31/18 10/31/18 10/31/18 16:45 18:50 19:45 19:45 Temp 98.7 Pulse 94 94 Resp 18 B/P (MAP) 132/65 (87) Pulse Ox 93 91 91 91 O2 Delivery Nasal Cannula Nasal Cannula Nasal Cannula O2 Flow Rate 2.00 2.00 2.00 FiO2 21 11/01/18 11/01/18 11/01/18 11/01/18 00:00 02:57 04:47 08:00 Temp 98.5 98.0 98.6 Pulse 87 95 91 Resp 18 20 20 B/P (MAP) 140/60 (86) 129/74 (92) 111/72 (85) Pulse Ox 93 92 78 91 O2 Delivery Nasal Cannula Nasal Cannula Nasal Cannula Room Air O2 Flow Rate 2.00 2.00 2.00 11/01/18 08:00 Pulse Ox 91 O2 Delivery Nasal Cannula O2 Flow Rate 2.00 Capillary Refill : Less Than 3 Seconds General Appearance: mild distress Respiratory: chest non-tender, wheezing Cardiovascular: regular rate, rhythm, no murmur Gastrointestinal: normal bowel sounds, non tender, soft Neurologic/Psychiatric: alert, normal mood/affect, oriented x 3 Skin: normal color, warm/dry Assessment/Plan Assessment/Plan Assessment & Plan Assessment: 1) asthma exacerbation 2) opioid use disorder Plan: 1) continue IV antibiotics 2) restart suboxone Clinical Quality Measures DVT/VTE Risk/Contraindication: Risk Factor Score Per Nursin RFS Level Per Nursing on Admit: 1=Low/No VTE PPX BESS BRADSHAW MD 11/01/18 1750: HPI History of Present Illness: Patient reports negative flu swab at walk-in yesterday. Date seen by provider: Nov 01, 2018 Time Seen by Provider: 09:32 Home Medications Allergies Coded Allergies: No Known Drug Allergies (Unverified , 06/04/17) [id number] Hx Past Medical History PMHx: Asthma Mood disorder Opioid dependency Family Medical History Family History: Patient reports no known family medical history. Review of Systems ([facility]) Constitutional: fever Assessment/Plan Assessment/Plan Admission Status: Inpatient Order (span 2 midnights) Reason for Inpatient Admission: Asthma exacerbation requiring IV steroids, high risk for respiratory failure. (1) Asthma exacerbation Status: Acute Assessment & Plan: Required multiple treatments and had persistent wheezing and hypoxia in spite of steroids and breathing treatments. Solumedrol 60 mg q6, Duonebs q4 scheduled and q2 prn. (2) Opiate dependence Status: Chronic Assessment & Plan: On suboxone therapy, nurse from [facility] brought her suboxone in so she can use and avoid withdrawal. (3) Mood disorder Status: Chronic Assessment & Plan: Resume home SSRI and trazodone. (4) DVT prophylaxis Status: Acute Assessment & Plan: Ambulate, low risk. KERRI BARAHONA MED STUDENT Nov 01, 2018 11:21 BESS BRADSHAW MD Nov 01, 2018 17:50
[2018-11-01 12:00] VITALS: BP 133/81
[2018-11-01 15:51] VITALS: BP 144/71
[2018-11-01 19:44] VITALS: BP 107/68
[2018-11-01] MEDS ORDERED: traZODone 100 MG (DESYREL) TAB PO SCH (21:00)
[2018-11-02 00:29] VITALS: BP 122/64
[2018-11-02] MEDS: methylPREDNISolone 40 MG/ML (Solu-MEDROL) VIAL IV SCH ×2 (00:49→05:38)
[2018-11-02] MEDS: RT-ALBUTEROL/IPRATROPIUM 3 ML (DUONEB) VIAL INH SCH ×2 (02:12→07:10)
[2018-11-02 06:31] LABS: HEMOGLOBIN 12.3 G/DL (11.5-16.0); MEAN PLATELET VOLUME 10.3 FL (7.4-10.4); RED CELL DISTRIBUTION WIDTH 15.1 % (10.0-14.5); WHITE BLOOD COUNT 24.8 10^3/uL (4.3-11.0)
[2018-11-02 06:58] LABS: BUN/CREATININE RATIO 18; CARBON DIOXIDE 23 MMOL/L (21-32); CHLORIDE 104 MMOL/L (98-107); CREATININE SERUM 0.76 MG/DL (0.60-1.30); GFR ESTIMATED > 60; GLUCOSE 202 MG/DL (70-105); POTASSIUM 4.4 MMOL/L (3.6-5.0); SODIUM 136 MMOL/L (135-145)
[2018-11-02] MEDS ORDERED: PRD10T PO (07:49)
[2018-11-02] MEDS ORDERED: ALBU6.7H8 INH (07:49)
[2018-11-02 08:00] VITALS: BP 123/65
--- NOTE | 2018-11-02 08:12 | Discharge Summary ---
Diagnosis/Chief Complaint Date of Admission Oct 31, 2018 at 14:38 Date of Discharge Nov 02, 2018 Admission Diagnosis Admission Diagnosis Asthma exacerbation Discharge Diagnosis See problem list Problems/Diagnosis: (1) Asthma exacerbation Assessment & Plan: Required multiple treatments and had persistent wheezing and hypoxia in spite of steroids and breathing treatments. Solumedrol 60 mg q6, Duonebs q4 scheduled and q2 prn. 11/02 weaned off O2 by day of d/c, discharged with script for albuterol and prednisone taper. Status: Acute (2) Opiate dependence Assessment & Plan: On suboxone therapy, nurse from [facility] brought her suboxone in so she can use and avoid withdrawal. Status: Chronic (3) Mood disorder Assessment & Plan: Resume home SSRI and trazodone. Status: Chronic Chief Complaint/HPI Chief Complaint/HPI 37 yo female sent to ER from walk-in due to persistent hypoxia and wheezing in spite of IM steroid and breathing treatments. Patient reports negative flu swab at walk-in yesterday. Discharge Summary-Simple/Stand Consultations Discharge Physical Examination Allergies: Coded Allergies: No Known Drug Allergies (Unverified , 06/04/17) Vitals & I&Os Vital Sign - Last 12Hours Date Time Temp Pulse Resp B/P (MAP) Pulse Ox O2 Delivery O2 Flow Rate FiO2 11/02/18 07:10 90 Room Air 11/02/18 00:29 98.4 80 16 122/64 (83) 11/01/18 08:00 2.00 10/31/18 16:45 21 Intake and Output 11/02/18 00:00 Intake Total 4610 ml Output Total 1400 ml Balance 3210 ml General Appearance: Alert, No Acute Distress Respiratory: Clear to Auscultation, Normal Air Movement Cardiovascular: Regular Rate, No Murmurs Neuro: Normal Speech Psych/Mental Status: Mental Status NL Hospital Course Was the Problem List Reviewed?: Yes See final discharge diagnosis. Labs Laboratory Tests Test 10/31/18 12:15 11/01/18 06:11 11/02/18 06:08 Range/Units White Blood Count 9.7 22.9 H 24.8 H 4.3-11.0 10^3/uL Red Blood Count 4.71 4.62 4.37 4.35-5.85 10^6/uL Hemoglobin 13.1 13.1 12.3 11.5-16.0 G/DL Hematocrit 40 39 38 35-52 % Mean Corpuscular Volume 84 84 86 80-99 FL Mean Corpuscular Hemoglobin 28 28 28 25-34 PG Mean Corpuscular Hemoglobin Concent 33 34 33 32-36 G/DL Red Cell Distribution Width 15.0 H 15.2 H 15.1 H 10.0-14.5 % Platelet Count 335 391 349 130-400 10^3/uL Mean Platelet Volume 10.1 10.3 10.3 7.4-10.4 FL Neutrophils (%) (Auto) 62 90 H 42-75 % Lymphocytes (%) (Auto) 29 7 L 12-44 % Monocytes (%) (Auto) 8 3 0-12 % Eosinophils (%) (Auto) 1 0 0-10 % Basophils (%) (Auto) 0 0 0-10 % Neutrophils # (Auto) 6.0 20.5 H 1.8-7.8 X 10^3 Lymphocytes # (Auto) 2.8 1.6 1.0-4.0 X 10^3 Monocytes # (Auto) 0.8 0.8 0.0-1.0 X 10^3 Eosinophils # (Auto) 0.1 0.0 0.0-0.3 10^3/uL Basophils # (Auto) 0.0 0.0 0.0-0.1 10^3/uL Sodium Level 134 L 135 136 135-145 MMOL/L Potassium Level 4.0 4.9 4.4 3.6-5.0 MMOL/L Chloride Level 102 104 104 98-107 MMOL/L Carbon Dioxide Level 23 21 23 21-32 MMOL/L Anion Gap 9 10 9 5-14 MMOL/L Blood Urea Nitrogen 15 14 14 7-18 MG/DL Creatinine 0.93 0.83 0.76 0.60-1.30 MG/DL Estimat Glomerular Filtration Rate > 60 > 60 > 60 BUN/Creatinine Ratio 16 17 18 Glucose Level 89 186 H 202 H 70-105 MG/DL Calcium Level 9.4 9.0 9.0 8.5-10.1 MG/DL Corrected Calcium 9.2 8.8 8.5-10.1 MG/DL Total Bilirubin 0.3 0.3 0.1-1.0 MG/DL Aspartate Amino Transf (AST/SGOT) 23 24 5-34 U/L Alanine Aminotransferase (ALT/SGPT) 46 39 0-55 U/L Alkaline Phosphatase 83 90 40-136 U/L C-Reactive Protein High Sensitivity 0.05 0.00-0.50 MG/DL Total Protein 7.5 7.5 6.4-8.2 GM/DL Albumin 4.2 4.2 3.2-4.5 GM/DL Neutrophils % (Manual) 86 % Lymphocytes % (Manual) 8 % Monocytes % (Manual) 4 % Eosinophils % (Manual) 0 % Basophils % (Manual) 0 % Band Neutrophils 2 % Anisocytosis SLIGHT Discharge Instructions to patient/family Please see electronic discharge instructions given to patient. Discharge Medications Reviewed and agree with Discharge Medication list on patient's Discharge Instruction sheet Clinical Quality Measures DVT/VTE Risk/Contraindication: Risk Factor Score Per Nursin RFS Level Per Nursing on Admit: 1=Low/No VTE PPX Copy Copies To 1: EMI AMIN MD, BETHANY N MD Nov 02, 2018 08:12
[2018-11-02] MEDS: [UNRECOGNIZED DRUG - OTHER] SL SCH (09:00)
[2018-11-02] MEDS: BUPRENORPHINE HCL SL SCH (09:00)
[2018-11-02] MEDS ORDERED: NON-FORMULARY MEDICATION 1 EA EA (Fluoxetine HCl (Prozac) 20 MG) PO SCH (09:00)
[2018-11-02] MEDS ORDERED: FLUoxetine HCL 20 MG (PROzac) CAP PO SCH (09:00)
[2018-11-02] MEDS: NICOTINE PATCH REMOVAL TP SCH (09:00)
[2018-11-02] MEDS: NICOTINE 21 MG (NICODERM) PATCH TD SCH (09:00)
[2018-11-02] MEDS: NALOXONE HCL SL SCH (09:00)
--- NOTE | 2018-11-02 10:13 | Discharge Instructions ---
Discharge [facility] Discharge Medications New, Converted or Re-Newed RX: Transmitted to Pharmacy New Medications: Prednisone (Prednisone) 10 Mg Tab 0 PO UD, #42 TAB 0 Refills Take 6 tabs(60mg)daily, decrease by 1 tab(10mg) every other day. Continued Medications: Albuterol Sulfate (Proventil Hfa) 6.7 Gm Hfa.aer.ad 2 PUFF INH Q6H PRN for SHORTNESS OF BREATH, #1 INHALER 0 Refills (This prescription has been renewed) Buprenorphine HCl/Naloxone HCl (Zubsolv 8.6-2.1 mg Tablet Sl) 1 Each Tab.subl 2 TAB SL DAILY, TAB Fluoxetine HCl (Prozac) 20 Mg Capsule 20 MG PO DAILY, CAP Trazodone HCl (Trazodone HCl) 100 Mg Tablet 100 MG PO HS, TAB Patient Instructions Goal/Follow Up Appt: Follow up with Dr. Amin on 11/05 at 11:40 am. Return to The Hospital For: Fever, worsening shortness of breath Activity & Diet Discharge Diet: No Restrictions Orders-Post D/C & Referrals Pneu Vac Indicated: Yes Copy Copies To 1: EMI AMIN MD, BETHANY N MD Nov 02, 2018 07:50
[2018-11-02] MEDS: ONDANSETRON 4 MG/2 ML (SDV) Z0FRAN IV PRN (10:20)
--- NOTE | 2018-11-02 11:30 | NUR ---
Patient discharged from Hospital. Ambulatory to front office administrator, where she called a cab for transport. Personal belongings and medication sent with patient. Suboxone sent with patient, counted, signed by patient, this nurse and student nurse and sent paper to pharmacy.
== END 2018-11-02 11:30 | disposition home or self-care (01) | DRG 202 ==
LOC: EDUNIT# 12:04 → ER 12:05 → 4TH 14:38
PROVIDERS: ADMIT Family Medicine; ATTEND Family Medicine
DX: J45.42 Moderate persistent asthma with status asthmaticus (principal); J98.11 Atelectasis; F11.23 Opioid dependence with withdrawal; F17.210 Nicotine dependence, cigarettes, uncomplicated; F43.10 Post-traumatic stress disorder, unspecified; F32.9 Major depressive disorder, single episode, unspecified; R19.7 Diarrhea, unspecified; F15.90 Other stimulant use, unspecified, uncomplicated; Z79.899 Other long term (current) drug therapy
CPT/HCPCS: 36415; 80048; 80053; 85007; 85025; 85027; 86141; 90686; 93041; 94640; 94664; 94760

== ENCOUNTER → 2020-02-20 | Outpatient (CLI) | payer SELFPAY ==
[~2020-02-20] MED LIST changes: +ALBU6.7H8 INH; +BUPR1FIL3 SL; +BUPR1TAB48 SL; -DULO30CA48 PO; +DULO30CA49 PO; +FLUO20CA42 PO; +PRD10T PO; +TRAZ-227 PO
--- NOTE | 2020-02-20 12:00 | Diagnostic Imaging Report ---
PROCEDURE: CT chest without contrast. TECHNIQUE: Multiple contiguous axial images were obtained through the chest without the use of intravenous contrast. Auto Exposure Controls were utilized during the CT exam to meet ALARA standards for radiation dose reduction. INDICATION: Shortness of breath COMPARISON: There are no prior CT chest examinations available for comparison. The plain film examination of the chest performed on 02/04/2018 failed to show any sign of an acute cardiopulmonary. FINDINGS: On this exam, the lungs are generally clear and well-aerated. There is minimal chronic atelectasis/scar formation in the periphery of the left lower lobe. There is also some thickening of the interface between the lung and the epicardial fat pad on the left. There are also vague parenchymal densities in the medial aspect of each upper lobe. These too may be chronic in nature. It would be less likely that they are secondary to mild acute pneumonia/atelectasis. Even so, clinical follow-up is recommended. There is no other sign of failure, pneumonia or of a pleural effusion to indicate an acute abnormality. The heart size is within normal limits. There are no coronary artery calcifications identified. The aorta is not abnormally dilated. There is no obvious mediastinal or hilar adenopathy. There is a vague area of increased density in the anterior mediastinum. This is probably secondary to residual thymic tissue. The thyroid gland was not well visualized. There is no obvious breast mass. The sections through the upper abdomen failed to show any sign of an acute abnormality. The gallbladder is surgically absent. The bone windows show no evidence for fracture or for a destructive lesion. IMPRESSION: 1. The vague areas of increased density in both upper lobes are more likely chronic in nature than due to mild acute pneumonia. Even so, clinical follow-up is recommended. 2. There is no acute cardiopulmonary abnormality noted otherwise. Dictated by: Dictated on workstation # [id number]
== END ==
LOC: CARD 10:56
PROVIDERS: ATTEND Pediatrics
DX: J98.4 Other disorders of lung (principal); J45.41 Moderate persistent asthma with (acute) exacerbation
CPT/HCPCS: 71250; 93306

== ENCOUNTER 2020-03-19 16:19 | Emergency (ER) | payer SELFPAY ==
[~2020-03-19] VITALS: Ht 167 cm; Wt 128.3 kg
[2020-03-19] MEDS ORDERED: TETANUS,DIPTH,PERTUSS P/F (BOOSTRIX) 0.5 ML VIAL IM ONE (16:45)
[2020-03-19] MEDS ORDERED: AUGMENTIN 875 MG TAB (AMOXICILLIN/CLAVULANATE) PO SCH (16:45)
[2020-03-19] MEDS ORDERED: AMOX-358 PO (16:48)
--- NOTE | 2020-03-19 16:49 | ED Integumentary General ---
General Chief Complaint: Skin/Wound Problems Stated Complaint: LEFT LEG LAC Source: patient Exam Limitations: no limitations History of Present Illness Date Seen by Provider: Mar 19, 2020 Time Seen by Provider: 16:44 Initial Comments Lacerate of the anterolateral left knee last night at 1 AM on a mirror. Tetanus is not up-to-date. Timing/Duration: just prior to arrival Location: extremities Associated Symptoms: denies symptoms Allergies and Home Medications Allergies Coded Allergies: No Known Drug Allergies (Unverified , 06/04/17) Home Medications Albuterol Sulfate 6.7 Gm Hfa.aer.ad, 2 PUFF INH Q6H PRN for SHORTNESS OF BREATH Prescribed by: BESS CAMPOS on 11/02/18 0749 Buprenorphine HCl/Naloxone HCl 1 Each Tab.subl, 2 TAB SL DAILY, (Reported) Fluoxetine HCl 20 Mg Capsule, 20 MG PO DAILY, (Reported) Prednisone 10 Mg Tab, 0 PO UD Take 6 tabs(60mg)daily, decrease by 1 tab(10mg) every other day. Prescribed by: BESS CAMPOS on 11/02/18 0749 Trazodone HCl 100 Mg Tablet, 100 MG PO HS, (Reported) Patient Home Medication List Home Medication List Reviewed: Yes Review of Systems Review of Systems Constitutional: see HPI EENTM: see HPI Respiratory: no symptoms reported Cardiovascular: no symptoms reported Genitourinary: no symptoms reported Musculoskeletal: no symptoms reported Skin: no symptoms reported, see HPI Psychiatric/Neurological: No Symptoms Reported Endocrine: No Symptoms Reported Hematologic/Lymphatic: No Symptoms Reported Past Weqyoru-Yzdjgm-Jbgcge Hx Patient Social History Alcohol Use: Denies Use Recreational Drug Use: Yes Drug of Choice: METHAMPHETAMINE Smoking Status: Current Everyday Smoker Type Used: Cigarettes 2nd Hand Smoke Exposure: Yes Recent Foreign Travel: No Contact w/Someone Who Travel: No Recent Hopitalizations: No Physical Abuse: No Sexual Abuse: No Mistreated: No Fear: No Immunizations Up To Date Tetanus Booster (TDap): More than 5yrs Date of Influenza Vaccine: Oct 31, 2018 Seasonal Allergies Seasonal Allergies: No Past Medical History Surgeries: Yes Gallbladder, Tubal Ligation Respiratory: Yes Asthma Cardiac: No 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 No Pertinent Family Hx Physical Exam Vital Signs Capillary Refill : General Appearance: WD/WN, no apparent distress, obese HEENT: PERRL/EOMI, normal ENT inspection Neck: non-tender, full range of motion Respiratory: no respiratory distress, no accessory muscle use Extremities: normal range of motion, other (there is a 3 cm laceration to the anterolateral left knee that is upside down backwards L shaped. This is about 1 cm in depth down into the subcutaneous tissue and does need closure even though this is a delayed primary closure. This was anesthetized with 4 mL of 1% lidocaine with epinephrine, scrubbed with chlorhexidine/saline solution and irrigated with the same and closed loosely with 8 yousif.) Neurologic/Psychiatric: alert, normal mood/affect, oriented x 3 Skin: normal color, warm/dry Procedures/Interventions Date of ETT Placement: Jun 26, 2017 Time of ETT Placement: 1749 Progress/Results/Core Measures Results/Orders My Orders Orders - LOPEZ GARNER APRN Amoxicillin/Clavulanate Tablet (Augmenti (03/19/20 16:45) Dipht,Pertuss(Acell),Tet Adult (Boostrix (03/19/20 16:45) Departure Impression Primary Impression: Leg laceration Qualified Codes: S81.812A - Laceration without foreign body, left lower leg, initial encounter Disposition: 01 HOME, SELF-CARE Condition: Stable Departure-Patient Inst. Decision time for Depature: 16:47 Referrals: [facility] [place] (PCP) Primary Care Physician EMI AMIN MD (Family) Primary Care Physician Patient Instructions: Laceration Repair With Yousif (DC) Add. Discharge Instructions: 1. This does have a high risk of infection. Take the antibiotics as directed. This is very important. Return to ER in 12 days (03/31/20) for staple removal. He can shower letting water run over this starting tomorrow. Return to ER for any signs of infection such as redness fever swelling at the site. Follow-up with your doctor on Monday for wound check. If you are unable to see them, return to the emergency room for wound check. All discharge instructions reviewed with patient and/or family. Voiced understanding. Scripts Amoxicillin/Potassium Clav (Augmentin 875-125 Tablet) 1 Each Tablet 1 EACH PO BID, #14 TAB 0 Refills Prov: LOPEZ GARNER APRN 03/19/20 LOPEZ GARNER APRN Mar 19, 2020 16:49
[2020-03-19 17:21] VITALS: BP 150/64
== END 2020-03-19 17:20 | disposition home or self-care (01) ==
LOC: EDUNIT# 16:19 → ER 16:21
DX: S81.812A Laceration without foreign body, left lower leg, initial encounter (principal); F17.210 Nicotine dependence, cigarettes, uncomplicated; J45.909 Unspecified asthma, uncomplicated; F32.9 Major depressive disorder, single episode, unspecified; Z79.52 Long term (current) use of systemic steroids; Z23 Encounter for immunization; W25.XXXA Contact with sharp glass, initial encounter
CPT/HCPCS: 12002; 90471; 90715

== ENCOUNTER 2023-02-18 12:59 | Emergency (ER) | payer SELFPAY ==
[~2023-02-18] VITALS: Ht 167.7 cm; Wt 99.8 kg
[~2023-02-18 12:59] MED LIST changes: +ALBU6.7H13 INH; -ALBU6.7H8 INH; +AMOX-358 PO; -DULO60CA6 PO; +DULO60CA7 PO; +QUET50TA23 PO; -QUET50TA55 PO
[2023-02-18 13:01] VITALS: BP 145/87
[2023-02-18] MEDS ORDERED: KCL 20 MEQ TAB (K-DUR) PO ONE (13:15)
[2023-02-18] MEDS ORDERED: NS IV 1000 ML 1,000 ML IV SCH (13:15)
[2023-02-18 13:22] LABS: BASOPHILS # (AUTO) 0.1 10^3/uL (0.0-0.1); BASOPHILS % (AUTO) 1 % (0-10); EOSINOPHILS # (AUTO) 0.2 10^3/uL (0.0-0.3); EOSINOPHILS % (AUTO) 3 % (0-10); HEMATOCRIT 30 % (35-52); HEMOGLOBIN 9.2 g/dL (11.5-16.0); LYMPHOCYTES # (AUTO) 1.9 10^3/uL (1.0-4.0); LYMPHOCYTES % (AUTO) 29 % (12-44); MEAN CORPUSCULAR HEMOGLOBIN 23 pg (25-34); MEAN CORPUSCULAR HGB CONC 31 g/dL (32-36); MEAN CORPUSCULAR VOLUME 74 fL (80-99); MEAN PLATELET VOLUME 9.9 fL (9.0-12.2); MONOCYTES # (AUTO) 0.7 10^3/uL (0.0-1.0); MONOCYTES % (AUTO) 10 % (0-12); NEUTROPHILS # (AUTO) 3.8 10^3/uL (1.8-7.8); NEUTROPHILS % (AUTO) 57 % (42-75); PLATELET COUNT 393 10^3/uL (130-400); WHITE BLOOD COUNT 6.7 10^3/uL (4.3-11.0)
--- NOTE | 2023-02-18 13:22 | ED General ---
General Chief Complaint: Detox Stated Complaint: DETOXING FROM AEROSOL PRODUCTS Nursing Triage Note: PT TO ROOM 05 [facility]IA [facility] WITH C/O WANTING TO DETOX FROM AEROSOLS AND LOW KCL. PT REPORTS METH USE YESTERDAY AND THAT SHE HAS NOT USED AEROSOLS IN X11 HOURS. Source of Information: Patient Exam Limitations: No Limitations History of Present Illness Date Seen by Provider: Feb 18, 2023 Time Seen by Provider: 13:18 Initial Comments To ER by EMS from [facility] where she presented with cough and chest congestion. She has had the symptoms for a few days. Cough is productive of sputum with a "string of pink" in it. While at [facility] she also reports some lower abdominal cramping, intermittent right arm tingling (absent at this time), intermittent chest heaviness. She used her last recreational Ileana tab 3 to 4 days ago, last lorazepam 1 day ago, also admits to using about 15 cans of air duster per day for huffing. She last used methamphetamine via injection about 12 to 24 hours ago. She follows with Dr. Emi Amin at [facility] and is in the process of establishing an intake at [facility] she states. While at [facility] she had a CMP drawn showing a potassium of 2.6, this result was sent to ER with her. Timing/Duration: 1-2 Days Severity: Moderate Associated Systoms: Chest Pain, Cough; No Headaches, No Malaise; Weakness Allergies and Home Medications Allergies Coded Allergies: No Known Drug Allergies (Unverified , 06/04/17) Patient Home Medication List Home Medication List Reviewed: Yes Albuterol Sulfate (Proventil Hfa) 6.7 Gm Hfa.aer.ad, 2 PUFF INH Q6H PRN for SHORTNESS OF BREATH Prescribed by: BESS CAMPOS on 11/02/18 0749 Amoxicillin/Potassium Clav (Augmentin 875-125 Tablet) 1 Each Tablet, 1 EACH PO BID Prescribed by: LOPEZ GARNER on 03/19/20 1648 Buprenorphine HCl/Naloxone HCl (Zubsolv 8.6-2.1 mg Tablet Sl) 1 Each Tab.subl, 2 TAB SL DAILY, (Reported) Entered as Reported by: YONATHAN CISNEROS on 11/01/18 1016 Fluoxetine HCl (Prozac) 20 Mg Capsule, 20 MG PO DAILY, (Reported) Entered as Reported by: YONATHAN CISNEROS on 11/01/18 0941 Prednisone (Prednisone) 10 Mg Tab, 0 PO UD Prescribed by: BESS CAMPOS on 11/02/18 0749 Trazodone HCl (Trazodone HCl) 100 Mg Tablet, 100 MG PO HS, (Reported) Entered as Reported by: YONATHAN CISNEROS on 11/01/18 0941 Review of Systems Review of Systems Constitutional: see HPI EENTM: see HPI Respiratory: no symptoms reported Cardiovascular: no symptoms reported Genitourinary: no symptoms reported Musculoskeletal: no symptoms reported Skin: no symptoms reported Psychiatric/Neurological: See HPI, Anxiety, Paresthesia Hematologic/Lymphatic: No Symptoms Reported Immunological/Allergic: no symptoms reported Past Yqdbjgi-Qbfstc-Aaacdp Hx Patient Social History Tobacco Use?: Yes Tobacco type used: Cigarettes Smoking Status: Never a Smoker Smokeless Tobacco Frequency: Never a User Use of E-Cig and/or Vaping dev: Yes E-Cig or Vaping type used: Nicotine, Marijuana Use of E-Cig and/or Vaping James: Current Everyday User, Never a User Substance use?: Yes Substance type: Amphetamines, Methamphetamine, Inhalants, Marijuana Substance frequency: Couple times a week Alcohol Use?: No Pt feels they are or have been: No Immunizations Up To Date Tetanus Booster (TDap): More than 5yrs Seasonal Allergies Seasonal Allergies: No Past Medical History Surgeries: Yes Gallbladder, Tubal Ligation Respiratory: Yes Asthma Cardiac: No 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 No Pertinent Family Hx Physical Exam Vital Signs Vital Signs - First Documented 02/18/23 13:01 Temp 36.9 Pulse 95 Resp 15 B/P (MAP) 145/87 (106) O2 Delivery Room Air Capillary Refill : Less Than 3 Seconds Height, Weight, BMI Height: 5'6.00" Weight: 261lbs. 8.0oz. 118.239889dt; 35.00 BMI Method:Stated General Appearance: No Apparent Distress, WD/WN, Other (Heart rate 90 sinus blood pressure normal. SPO2 100% room air. GCS 15. Speech is at an appropriate rate, nonpressured. Alert and oriented. Very pleasant and open about her history of drug use.) Eyes: Bilateral Eye Normal Inspection, Bilateral Eye PERRL, Bilateral Eye EOMI HEENT: PERRL/EOMI, TMs Normal Neck: Full Range of Motion, Normal Inspection Respiratory: No Accessory Muscle Use, No Respiratory Distress Cardiovascular: Regular Rate, Rhythm, Normal Peripheral Pulses Gastrointestinal: Normal Bowel Sounds, Soft Extremity: Normal Capillary Refill, Normal Inspection Neurologic/Psychiatric: Alert, Oriented x3, No Motor/Sensory Deficits Skin: Normal Color, Warm/Dry Procedures/Interventions Date of ETT Placement: Jun 26, 2017 Time of ETT Placement: 1748 Progress/Results/Core Measures Suspected Sepsis SIRS Temperature: Pulse: 95 Respiratory Rate: 15 Laboratory Tests 02/18/23 13:07: White Blood Count 6.7 Blood Pressure 145 /87 Mean: 106 Laboratory Tests 02/18/23 13:07: Creatinine 0.83, Platelet Count 393, Total Bilirubin 0.3 Results/Orders Lab Results Laboratory Tests Test 02/18/23 13:07 Range/Units White Blood Count 6.7 4.3-11.0 10^3/uL Red Blood Count 4.02 3.80-5.11 10^6/uL Hemoglobin 9.2 L 11.5-16.0 g/dL Hematocrit 30 L 35-52 % Mean Corpuscular Volume 74 L 80-99 fL Mean Corpuscular Hemoglobin 23 L 25-34 pg Mean Corpuscular Hemoglobin Concent 31 L 32-36 g/dL Red Cell Distribution Width 18.0 H 10.0-14.5 % Platelet Count 393 130-400 10^3/uL Mean Platelet Volume 9.9 9.0-12.2 fL Immature Granulocyte % (Auto) 0 % Neutrophils (%) (Auto) 57 42-75 % Lymphocytes (%) (Auto) 29 12-44 % Monocytes (%) (Auto) 10 0-12 % Eosinophils (%) (Auto) 3 0-10 % Basophils (%) (Auto) 1 0-10 % Neutrophils # (Auto) 3.8 1.8-7.8 10^3/uL Lymphocytes # (Auto) 1.9 1.0-4.0 10^3/uL Monocytes # (Auto) 0.7 0.0-1.0 10^3/uL Eosinophils # (Auto) 0.2 0.0-0.3 10^3/uL Basophils # (Auto) 0.1 0.0-0.1 10^3/uL Immature Granulocyte # (Auto) 0.0 0.0-0.1 10^3/uL Sodium Level 139 135-145 MMOL/L Potassium Level 2.8 L 3.6-5.0 MMOL/L Chloride Level 108 H 98-107 MMOL/L Carbon Dioxide Level 22 21-32 MMOL/L Anion Gap 9 5-14 MMOL/L Blood Urea Nitrogen 10 7-18 MG/DL Creatinine 0.83 0.60-1.30 MG/DL Estimat Glomerular Filtration Rate 89 BUN/Creatinine Ratio 12 Glucose Level 95 70-105 MG/DL Calcium Level 9.1 8.5-10.1 MG/DL Corrected Calcium 9.0 8.5-10.1 MG/DL Magnesium Level 1.9 1.6-2.4 MG/DL Total Bilirubin 0.3 0.1-1.0 MG/DL Aspartate Amino Transf (AST/SGOT) 18 5-34 U/L Alanine Aminotransferase (ALT/SGPT) 14 0-55 U/L Alkaline Phosphatase 133 40-136 U/L Troponin I < 0.028 <0.028 NG/ML Total Protein 7.6 6.4-8.2 GM/DL Albumin 4.1 3.2-4.5 GM/DL Thyroid Stimulating Hormone (TSH) 1.39 0.35-4.94 UIU/ML Serum Test, Qualitative NEGATIVE NEGATIVE Salicylates Level < 5.0 L 5.0-20.0 MG/DL Acetaminophen Level < 10 L 10-30 UG/ML Serum Alcohol < 10 <10 MG/DL My Orders Orders - LOPEZ GARNER OPERATIONS DEVELOPER Cbc With Automated Diff (02/18/23 13:13) Comprehensive Metabolic Panel (02/18/23 13:13) Hcg,Qualitative Serum (02/18/23 13:13) Magnesium (02/18/23 13:13) Thyroid Stimulating Hormone (02/18/23 13:13) Alcohol (02/18/23 13:13) Salicylate (02/18/23 13:13) Acetaminophen (02/18/23 13:13) Ed Iv/Invasive Line Start (02/18/23 13:13) Ns Iv 1000 Ml (Sodium Chloride 0.9%) (02/18/23 13:15) Potassium Cl 10meq/50ml Ivpb (Kcl 10 Meq (02/18/23 13:15) Potassium Chloride (Tablet) (K Dur Table (02/18/23 13:15) Chest 1 View, Ap/Pa Only (02/18/23 13:25) Troponin I Azul (02/18/23 13:25) Ekg Tracing (02/18/23 13:48) Medications Given in ED Current Medications Medications Dose Ordered Sig/Margarita Route Start Time Stop Time Status Last Admin Dose Admin Potassium Chloride 40 meq ONCE ONCE PO 02/18/23 13:15 02/18/23 13:16 DC 02/18/23 13:38 40 MEQ Vital Signs/I&O 02/18/23 02/18/23 13:01 13:03 Temp 36.9 Pulse 95 Resp 15 B/P (MAP) 145/87 (106) O2 Delivery Room Air Room Air Capillary Refill : Less Than 3 Seconds Blood Pressure Mean: 106 ECG Initial ECG Impression Date: Feb 18, 2023 Initial ECG Impression Time: 13:24 Initial ECG Rate: 77 Initial ECG Rhythm: Normal Sinus Initial ECG Intervals: Normal Initial ECG Impression: Normal Departure Communication (Admissions) CBC reviewed and shows a normal WBC Hgb and PLT. Chemistry reviewed and shows a low potassium at 2.8. Remainder of her electrolytes renal and hepatic function are within normal ranges. EKG shows sinus at 77, prolonged NH interval at 173 ms which can be seen with hypokalemia. Is no T wave flattening or inversion. Normal QTc. No U waves. No urine drug screen done here as she has 1 of these with her from [facility]. X-ray shows a right base atelectasis versus infiltrate. Given her complaints of a cough, I will give her a prescription for some antibiotics. Have her follow-up with primary care next week. Impression Primary Impression: Substance abuse Additional Impressions: Hypokalemia RLL pneumonia Disposition: 01 HOME, SELF-CARE Condition: Stable Departure-Patient Inst. Decision time for Depature: 13:58 Referrals: [facility] (PCP) Primary Care Physician EMI AMIN MD (Family) Primary Care Physician Patient Instructions: Substance Use Disorder ED, Hypokalemia (DC) Add. Discharge Instructions: 1. Follow-up with [facility] addiction treatment program. Call [phone] tomorrow morning to make an appointment. Return to ER for any concerns. Beware that huffing canned air is not just a benign recreational drug, this can lead to "sudden sniffing " which is an arrhythmia induced by huffing canned air. IV drug use of any sort can lead to infection of the heart valves necessitating open heart surgery. Do your best to avoid these substances and the people with whom you associate while using these substances. All discharge instructions reviewed with patient and/or family. Voiced understanding. Scripts Potassium Chloride (Potassium Chloride) 20 Meq Tablet.er 20 MEQ PO BID, #8 TAB Prov: LOPEZ GARNER APRN 02/18/23 Amoxicillin/Potassium Clav (Amox Tr-K Clv 875-125 mg Tab) 875 Mg-125 Mg Tablet 1 EACH PO BID, #14 TAB Prov: LOPEZ GARNER APRN 02/18/23 Copy Copies To 1: JACINTA LAL PETER J APRN Feb 18, 2023 13:22
[2023-02-18 13:27] LABS: ALBUMIN 4.1 GM/DL (3.2-4.5); CHLORIDE 108 MMOL/L (98-107); POTASSIUM 2.8 MMOL/L (3.6-5.0); SODIUM 139 MMOL/L (135-145)
[2023-02-18 13:29] LABS: CALCIUM 9.1 MG/DL (8.5-10.1)
[2023-02-18 13:30] LABS: GLUCOSE 95 MG/DL (70-105); TOTAL PROTEIN 7.6 GM/DL (6.4-8.2)
[2023-02-18 13:31] LABS: CARBON DIOXIDE 22 MMOL/L (21-32)
[2023-02-18 13:32] LABS: BILIRUBIN,TOTAL 0.3 MG/DL (0.1-1.0)
[2023-02-18 13:34] LABS: ALKALINE PHOSPHATASE 133 U/L (40-136); CREATININE SERUM 0.83 MG/DL (0.60-1.30); GFR ESTIMATED 89
[2023-02-18 13:35] LABS: BUN/CREATININE RATIO 12
[2023-02-18 13:37] LABS: ACETAMINOPHEN < 10 UG/ML (10-30); ALANINE AMINOTRANSFERASE 14 U/L (0-55); MAGNESIUM 1.9 MG/DL (1.6-2.4); SALICYLATE < 5.0 MG/DL (5.0-20.0)
[2023-02-18] MEDS: POTASSIUM CL 10MEQ/50ML IVPB 50 ML IV SCH ×2 (13:38→13:55)
--- NOTE | 2023-02-18 14:01 | Diagnostic Imaging Report ---
CLINICAL INDICATION: Patient with cough. EXAM: Portable chest x-ray, upright view. COMPARISON: Chest x-ray dated 07/01/2017. FINDINGS: There is a curvilinear airspace opacity in the right lung base which may represent atelectasis versus infiltrate. Otherwise, the lungs are clear. There is no pleural effusion or pneumothorax. The pulmonary vasculature and cardiac silhouette are within normal limits. Bones show no significant interval abnormality. IMPRESSION: There is minimal right lung base atelectasis versus infiltrate. Dictated by: Dictated on workstation # [id number]
[2023-02-18] MEDS ORDERED: AMOX1TAB12 PO (14:09)
[2023-02-18] MEDS ORDERED: POTA-330 PO (14:09)
== END 2023-02-18 15:07 | disposition home or self-care (01) ==
LOC: EDUNIT# 12:59 → ER 13:01
DX: J18.9 Pneumonia, unspecified organism (principal); E87.6 Hypokalemia; F15.10 Other stimulant abuse, uncomplicated; F17.210 Nicotine dependence, cigarettes, uncomplicated; Z28.310 Unvaccinated for COVID-19
CPT/HCPCS: 71045; 80053; 83735; 84443; 84484; 84703; 85025; 93005; 99284; G0480 ×3; 36415; 80320; 80329